=== PATIENT | male | born 1960 | race Two or more races ===

== ENCOUNTER 2024-09-12 11:34 | Emergency (ER) | payer OTHER ==
[~2024-09-12] VITALS: Ht 177.8 cm; Wt 49.4 kg
[2024-09-12 14:54] VITALS: BP 104/77; TEMP 97.8; O2SAT 99
[2024-09-16] MEDS ORDERED: LEVO500T90 PO (12:42)
[2024-09-16] MEDS ORDERED: PRED20TA PO (12:42)
[2024-09-16] MEDS ORDERED: ALBU2.5V13 NEB (12:42)
== END 2024-09-12 14:54 | disposition home or self-care (01) ==
LOC: ER 11:43
DX: J84.10 Pulmonary fibrosis, unspecified (principal); Z99.81 Dependence on supplemental oxygen

== ENCOUNTER 2024-09-12 15:37 | Inpatient (IN) | payer OTHER ==
[~2024-09-12] VITALS: Ht 172.7 cm; Wt 51.7 kg
[2024-09-12] MEDS ORDERED: methylPREDNISolone SOD SUCC 125 MG/2ML VIAL ONE (16:12)
[2024-09-12] MEDS: methylPREDNISolone SOD SUCC 125 MG/2ML VIAL IV ONE (16:15)
[2024-09-12 16:50] LABS: BASOPHILS # (AUTO) 0.1 K/uL (0.0-0.2); BASOPHILS % (AUTO) 0.4 % (0.0-2.0); EOSINOPHILS # (AUTO) 0.1 K/uL (0.0-0.7); HEMATOCRIT 46 % (39-51); HEMOGLOBIN 15.2 g/dL (13.5-17.5); LYMPHOCYTES % (AUTO) 13.9 % (20.0-44.0); MEAN CORPUSCULAR HEMOGLOBIN 30 PG (26.0-33.0); MEAN CORPUSCULAR HGB CONC 33 g/dl (31.0-36.0); MEAN CORPUSCULAR VOLUME 89 fL (80-96); MONOCYTES # (AUTO) 0.6 K/uL (0.1-1.30); MONOCYTES % (AUTO) 4.1 % (2.0-12.0); NEUTROPHILS # (AUTO) 11.6 K/uL (1.8-8.9); NEUTROPHILS % (AUTO) 80.6 % (43.0-81.0); PLATELET COUNT (AUTO) 237 K/uL (150-450); RED BLOOD CELL COUNT(AUTO) 5.15 MIL/uL (4.5-6.0); RED CELL DISTRIBUTION WIDTH 13.2 % (11.5-15.0); WHITE BLOOD COUNT (AUTO) 14.4 K/uL (4.3-11.0)
[2024-09-12] MEDS: CEFEPIME 1 GM in IV D5W 50 ML IV ONE (16:52)
[2024-09-12 16:59] LABS: CALCIUM, SERUM 9.1 mg/dL (8.5-10.1); CREATININE 0.6 mg/dL (0.6-1.3); POTASSIUM 4.5 mmol/L (3.5-5.1)
[2024-09-12] MEDS: VANCOMYCIN 1 GM in IV D5W 250 ML IV ONE (17:31)
[2024-09-12 17:56] LABS: ABG BASE EXCESS 2.5 mmol/L (-2.0-3.0); ABG OXYGEN SATURATION 97.4 % (94.0-98.0); ABG PH 7.435 (7.350-7.450); ABG PO2 99.1 mmHg (83.0-108.0); COHb 0.2 % (0.5-1.5); MetHb 0.2 % (0.0-1.5); SITE, ABG RIGHT RADIAL
[2024-09-12] MEDS ORDERED: Z GUARD REMEDY 4 OZ OINT TP PRN (21:00)
[2024-09-12] MEDS ORDERED: ONDANSETRON HCL/PF 4 MG/2 ML VIAL IVP PRN (21:00)
[2024-09-12] MEDS ORDERED: MAGNESIUM HYDROXIDE 30 ML UDC PO PRN (21:00)
[2024-09-12] MEDS ORDERED: ACETAMINOPHEN 325 MG TABLET PO PRN (21:00)
[2024-09-12 22:00] VITALS: BP 111/79; TEMP 97.5; O2SAT 97
[2024-09-12] MEDS: methylPREDNISolone SOD SUCC 40 MG/ML VIAL IV SCH (22:13)
[2024-09-12] MEDS: IV NS 0.9% 1,000 ML IV PRN (22:14)
[2024-09-13] VITALS (11 sets, daily range): BP systolic 97–121; BP diastolic 64–74; TEMP 97.3–98.1; O2SAT 91–99
[2024-09-13] MEDS ORDERED: CEFEPIME 1 GM VIAL ONE (00:18)
[2024-09-13] MEDS: CEFEPIME 2 GM in IV D5W 100 ML IV SCH (00:33)
[2024-09-13] MEDS: VANCOMYCIN 1 GM /D5W 250 ML PB IV ONE (04:54)
[2024-09-13] MEDS: VANCOMYCIN 1 GM in IV D5W 250ml IV SCH (05:01)
[2024-09-13 06:18] LABS: ABG BASE EXCESS 4.1 mmol/L (-2.0-3.0); ABG OXYGEN SATURATION 98.4 % (94.0-98.0); ABG PCO2 43.3 mmHg (35.0-48.0); ABG PO2 140.6 mmHg (83.0-108.0); ABG TOTAL HEMOGLOBIN 14.3 G/dL (13.5-17.5); COHb 0.4 % (0.5-1.5); MetHb 0.2 % (0.0-1.5); O2Hb 97.8 % (94.0-97.0); SITE, ABG LEFT RADIAL
[2024-09-13] MEDS ORDERED: ACETYLCYSTEINE 10% SOLN 400 MG/4 ML VIAL NEB PRN (07:00)
[2024-09-13 07:10] LABS: BASOPHILS % (AUTO) 0.3 % (0.0-2.0); EOSINOPHILS % (AUTO) 0.3 % (0.0-6.0); HEMATOCRIT 45 % (39-51); HEMOGLOBIN 14.5 g/dL (13.5-17.5); LYMPHOCYTES # (AUTO) 1.7 K/uL (0.8-4.8); LYMPHOCYTES % (AUTO) 13.9 % (20.0-44.0); MEAN CORPUSCULAR HEMOGLOBIN 29 PG (26.0-33.0); MEAN CORPUSCULAR HGB CONC 33 g/dl (31.0-36.0); MEAN CORPUSCULAR VOLUME 89 fL (80-96); MONOCYTES # (AUTO) 0.1 K/uL (0.1-1.30); MONOCYTES % (AUTO) 0.9 % (2.0-12.0); NEUTROPHILS # (AUTO) 10.3 K/uL (1.8-8.9); NEUTROPHILS % (AUTO) 84.6 % (43.0-81.0); PLATELET COUNT (AUTO) 226 K/uL (150-450); RED BLOOD CELL COUNT(AUTO) 5.01 MIL/uL (4.5-6.0); RED CELL DISTRIBUTION WIDTH 13.1 % (11.5-15.0); WHITE BLOOD COUNT (AUTO) 12.2 K/uL (4.3-11.0)
[2024-09-13 07:29] LABS: CALCIUM, SERUM 9.1 mg/dL (8.5-10.1); CREATININE 0.6 mg/dL (0.6-1.3); PHOSPHORUS 4.2 mg/dL (2.5-4.9)
[2024-09-13] MEDS: ALBUTEROL HALF STRENGTH 1.25 MG/3 ML VIAL.NEB NEB SCH (07:48)
[2024-09-13] MEDS: PANTOPRAZOLE 40 MG TABLET.DR PO SCH (08:17)
[2024-09-13] MEDS: ACETYLCYSTEINE 10% SOLN 400 MG/4 ML VIAL NEB SCH (13:34)
[2024-09-13] MEDS: ENSURE ENLIVE CHOC 237 ML CAN PO SCH (17:10)
[2024-09-14] VITALS (14 sets, daily range): BP systolic 93–103; BP diastolic 58–67; TEMP 97.5–98.1; O2SAT 94–99
[2024-09-14 06:49] LABS: CALCIUM, SERUM 8.6 mg/dL (8.5-10.1); CREATININE 0.4 mg/dL (0.6-1.3); POTASSIUM 4.1 mmol/L (3.5-5.1)
[2024-09-14] MEDS ORDERED: ENSURE ENLIVE 237 ML LIQUID (VANILLA) PO SCH (09:00)
[2024-09-14] MEDS: VANCOMYCIN 1 GM in IV D5W 250ml IV SCH (15:19)
[2024-09-15] VITALS (12 sets, daily range): BP systolic 93–106; BP diastolic 58–77; TEMP 97.2–97.9; O2SAT 91–99
[2024-09-15 07:38] LABS: CREATININE 0.4 mg/dL (0.6-1.3)
[2024-09-15] MEDS: MAG HYDROX/AL HYDROX/SIMETH 30 ML UDC PO PRN (21:29)
[2024-09-16] VITALS (11 sets, daily range): BP systolic 94–105; BP diastolic 61–69; TEMP 97.5; O2SAT 93–100
[2024-09-16 06:56] LABS: CALCIUM, SERUM 8.6 mg/dL (8.5-10.1); CREATININE 0.4 mg/dL (0.6-1.3); POTASSIUM 3.6 mmol/L (3.5-5.1)
[2024-09-16] MEDS: methylPREDNISolone SOD SUCC 40 MG/ML VIAL IV SCH (08:10)
[2024-09-16] MEDS ORDERED: ALBU2.5V13 NEB (12:42)
[2024-09-16] MEDS ORDERED: PRED20TA PO (12:42)
[2024-09-16] MEDS ORDERED: LEVO500T90 PO (12:42)
== END 2024-09-16 19:20 | disposition home or self-care (01) | DRG 193 ==
LOC: ER 15:38 → TELE-TD 20:39 → TELE1 09-13 09:31 → MEDSG1 09-16 13:03
PROVIDERS: ADMIT Nurse Practitioner Family; ATTEND Nurse Practitioner Acute Care
DX: J18.9 Pneumonia, unspecified organism (principal); J96.01 Acute respiratory failure with hypoxia; E87.1 Hypo-osmolality and hyponatremia; E84.9 Cystic fibrosis, unspecified; J84.10 Pulmonary fibrosis, unspecified; Z99.81 Dependence on supplemental oxygen; I10 Essential (primary) hypertension; F41.0 Panic disorder [episodic paroxysmal anxiety]; E86.0 Dehydration; E86.1 Hypovolemia
CPT/HCPCS: 36415; 36600; 71045-TC; 71250-TC; 80048-TC; 80202-TC; 82803-TC; 83605-TC; 83735-TC; 84100-TC; 84484-TC; 85025-TC; 87040-TC; 94760-TC; 94799-TC; A4223; G0378; J0692; J2919; J3370; J7030; J7060